=== PATIENT | female | born 1995 | race Caucasian/White ===

== ENCOUNTER 2024-12-06 11:17 | Emergency (ER) | payer MEDICAID ==
[~2024-12-06] VITALS: Ht 162.6 cm; Wt 57.0 kg
[2024-12-06 11:20] VITALS: BP 153/84; PULSE 132; TEMP 97.3; O2SAT 99
--- NOTE | 2024-12-06 12:17 | Physician Documentation ---
HPI ~ General Chief Complaint: Allergic Reaction Stated Complaint: Swollen upper lip Time Seen by MD: 11:30 OK to notify your PCP?: Yes Primary Medical Doctor: [facility] Source: patient, RN/MD History of Present Illness HPI Comment Patient is seen today with complaints of what she thought might be an allergic reaction however patient states her upper lip is painful and she has no itching and states he has pain in her teeth and pain in her right maxillary sinus. Patient denies any fevers or chills in his no other concern or complaint at this time. Medication Reconciliation Allergies: Coded Allergies: No Known Allergies (Unverified , 12/06/24) Review of Systems Constitutional: Denies: chills, fever, weakness Eyes: Denies: pain, blurred vision ENT: Denies: ear pain, nose pain, throat pain, mouth pain Respiratory: Denies: cough, shortness of breath Cardiovascular: Denies: chest pain, palpitations Gastrointestinal: Denies: abdominal pain, nausea, vomiting Genitourinary: Denies: burning, dysuria Female Genitalia: Denies: vaginal discharge, pelvic pain Neurological: Denies: headache, dizziness Musculoskeletal: Denies: pain, swelling Integumentary: Denies: rash, lesions Allergic/Immunologic: Denies: hives, itching Hematologic/Lymphatic: Denies: no symptoms reported Psychiatric: Denies: depression, anxiety Physical Exam Vital Signs: Temperature: 97.3, Source: Temporal, Heart Rate: 132, Respiratory Rate: 16, BP: 153/84, Pulse Oximetry: 99, Weight: 57.000 Oxygen Flow Rate: 0 Physical Exam General: Awake and Alert, no acute distress. HEENT: Patient on exam has periapical abscess of the front to incisors upper incisors. Patient has swelling of her upper lip and tenderness to palpation of the right maxillary sinus. I do not appreciate any involvement of the orbit of the eye on either side. Conjunctiva pink, Sclera clear, Mucus Membranes moist. Neck: Supple without masses and tenderness. Resp: Unlabored. Lungs clear to auscultation bilaterally. Heart: Regular Rate and rhythm, normal S1 and S2 without murmur, rub or gallop. Extremities: No cyanosis,clubbing or edema. Skin: Warm and Dry. Procedures I & D Procedure : Procedure Note Procedure note: I was able to Luis the periapical abscess of both upper incisors and patient tolerated well. A small amount of purulent drainage was expressed from each. Progress Results/Orders Results/Orders Vital Signs 12/06/24 11:20 Temp 97.3 Pulse 132 Resp 16 B/P (MAP) 153/84 Pulse Ox 99 O2 Flow Rate 0 Medical Decision Making Findings Patient is seen today with complaints of what she thought might be an allergic reaction however patient states her upper lip is painful and she has no itching and states he has pain in her teeth and pain in her right maxillary sinus. Patient denies any fevers or chills in his no other concern or complaint at this time. I was able to Luis the periapical abscess in the ED today. Patient was given Augmentin 875/125 mg tablet in the ED today by mouth. Toradol 30 mg IM in the ED today. Prescription of Tylenol and ibuprofen and Augmentin to be taken as prescribed sent to patient's pharmacy. Patient will follow up with dentist as soon as possible. Patient will return to ED with any worsening, concerning or changing symptoms. Departure Disposition: 01 HOME / SELF CARE / HOMELESS Impression: Primary Impression: Periapical abscess Condition: Stable Discharge Instructions: Dental Abscess, [id number] Additional Instructions: Patient was given Augmentin 875/125 mg tablet in the ED today by mouth. Toradol 30 mg IM in the ED today. Prescription of Tylenol and ibuprofen and Augmentin to be taken as prescribed sent to patient's pharmacy. Patient will follow up with dentist as soon as possible. Patient will return to ED with any worsening, concerning or changing symptoms. Referrals: NO PRIMARY CARE PROVIDER (PCP) Prescriptions Acetaminophen (Tylenol Extra Strength) 500 Mg Tablet 2 TAB PO Q6H PRN PRN for pain or fever for 7 Days, #56 TAB Prov: DANNY PURCELL 12/06/24 Ibuprofen (Ibuprofen) 800 Mg Tablet 1 TAB PO Q8H for pain for 10 Days, #30 TAB 0 Refills Prov: DANNY PURCELL 12/06/24 Amox Tr/Potassium Clavulanate (Augmentin 875-125 Tablet) 1 Each Tablet 1 TAB PO Q12H for 10 Days, #20 TAB Prov: DANNY PURCELL 12/06/24 Signature Scribe Signature: No scribe Attestation: No scribe DANNY PURCELL Dec 06, 2024 12:17
[2024-12-06] MEDS ORDERED: ACET-1025 PO (12:28)
[2024-12-06] MEDS ORDERED: IBUP-1986 PO (12:28)
[2024-12-06] MEDS ORDERED: AMOX-117 PO (12:28)
[2024-12-06 12:50] VITALS: RESP 16
[2024-12-06] MEDS: amox tr/potassium clavulanate 875/125mg TAB PO STA (12:50)
[2024-12-06] MEDS: ketorolac trometh 30MG/ML vial 30 MG/ML VIAL IM STA (12:50)
== END 2024-12-06 13:33 | disposition home or self-care (01) ==
LOC: ER 11:18
DX: K04.7 Periapical abscess without sinus (principal)
CPT/HCPCS: 41800; 96372; 99284; J1885; A6449